=== PATIENT | female | born 1995 | race Caucasian/White ===

== ENCOUNTER 2025-05-26 17:24 | Emergency (ER) | payer BC ==
[~2025-05-26 17:24] MED LIST: Iopamidol-370 76% 500 ML MDV (1 ML CHARGE) ONE
[2025-05-26 18:48] LABS: Pregnancy Test - Urine (BHCG) Negative (Negative); Pregu Control Background? CLEAR/WHITE (CLR/WHITE); Pregu Control Bar Appear? YES (CONTROL BAR)
[2025-05-26] MEDS ORDERED: Ketorolac Tromethamine 30 MG (1 mL) VIAL ONE (18:51)
[2025-05-26] MEDS ORDERED: Ondansetron PF 4 MG/2 ML Vial ONE (18:51)
[2025-05-26 18:55] LABS: CAUTI Indications for Culture Dysuria,urgency,freq; Glucose, Urine (Dipstick) Normal (Negative); Leukocyte Negative Leu/uL (Negative); Protein, Urine (Dipstick) Negative (Neg-Trace); RBC/HPF 0-3 HPF (0-3); Specific Gravity, Urine 1.033 (1.002-1.036); WBC/HPF 0-3 HPF (0-3)
[2025-05-26 18:56] LABS: Bacteria/HPF 1+ HPF (None Seen)
[2025-05-26 18:58] LABS: Urine Culture Reflex No No
[2025-05-26 19:32] LABS: #Basophils 0.09 10x3/uL (0.0-0.2); #Eosinophils 0.25 10x3/uL (0.0-0.7); #Monocytes 0.67 10x3/uL (0.11-0.59); #Neutrophils 5.53 10x3/uL (1.40-6.50); %Basophils 1.0 % (0.0-1.0); %Eosinophils 2.6 % (0.0-10.0); %Lymphocytes 30.7 % (21.0-51.0); %Monocytes 7.1 % (0.0-10.0); %Neutrophils 58.4 % (42.0-75.0); Hematocrit 43.8 % (36.0-47.0); Hemoglobin 14.0 g/dL (12.0-16.0); Mean Corpuscular Hemoglobin 26.1 pg (27.0-31.0); Mean Corpuscular Volume 81.6 fL (78.0-98.0); Platelet Count 372 10x3/uL (130-400); Red Blood Cell (RBC) Count 5.37 mill/uL (4.20-5.40); White Blood Cell (WBC) Count 9.46 10x3/uL (4.8-10.8)
[2025-05-26 19:51] LABS: ALT (SGPT) 7 U/L (Less than 34); AST (SGOT) 20 U/L (11-34); Albumin 4.6 g/dL (3.1-4.5); Alkaline Phosphatase 58 U/L (40-110); Anion Gap 14 mmol/L (10-20); BUN (Urea Nitrogen) 13 mg/dL (7.0-18.7); Bilirubin, Total 0.4 mg/dL (0.3-1.2); Calc. Creatinine Clearance 0 mL/min (70-130); Calcium 9.7 mg/dL (7.8-10.44); Carbon Dioxide 22 mmol/L (22-29); Chloride 106 mmol/L (98-107); Globulin 3.7 g/dL (2.4-3.5); Glucose 79 mg/dL (70-105); Lipase 46 U/L (8-78); Potassium 3.8 mmol/L (3.5-5.1); Sodium 138 mmol/L (136-145)
[2025-05-27 14:20] LABS: Chlamydia by PCR, Vaginal Swab Not Detected (NotDetected); GC by PCR, Vaginal Swab Not Detected (NotDetected)
== END 2025-05-26 22:16 | disposition home or self-care (01) ==
LOC: ERS 17:24
DX: R10.A3 Flank pain, bilateral (principal)
CPT/HCPCS: 74177; 80053; 81001; 81025; 83605; 83690; 85025; 87086; 87480; 87491; 87510; 87591; 87660; 96374; 96375; 96376; J1885; J2405; J3010; Q9967